=== PATIENT | female | born 1945 | race Two or more races ===

== ENCOUNTER 2017-11-04 10:39 | Emergency (ER) | payer OTHER ==
[~2017-11-04] VITALS: Ht 162.6 cm; Wt 84.8 kg
[~2017-11-04 10:39] MED LIST: ALPRAZOLAM ER1 MG; ATORVASTATIN CA10 MG; COZAAR25 MG; CYTOMEL5 MCG; DICLOFENAC POTA50 MG; PROTONIX20 MG; TENORMIN50 M1; ZYRTEC10 MG PO
[2017-11-04] MEDS ORDERED: ATORVASTATIN CA10 MG (11:16)
[2017-11-04] MEDS ORDERED: MEDROLPACK PO (21:08)
[2017-11-04] MEDS ORDERED: TESSALON PERLE100 MG PO (21:08)
[2017-11-04] MEDS ORDERED: SYMBICORT 16010.2 GM IH (21:08)
[2017-11-04] MEDS ORDERED: VENTOLIN HFA18 GM IH (21:08)
[2017-11-04] MEDS ORDERED: MUCINEX D ER 11 EACH PO (21:08)
[2017-11-04] MEDS ORDERED: ZITHROMAX500 MG PO (21:08)
== END 2017-11-04 21:14 | disposition home or self-care (01) ==
LOC: ER 10:39
DX: J44.9 Chronic obstructive pulmonary disease, unspecified (principal); B34.9 Viral infection, unspecified; J11.1 Influenza due to unidentified influenza virus with other respiratory manifestations

== ENCOUNTER → 2017-11-28 10:24 | Outpatient (CLI) | payer OTHER ==
[~2017-11-28 10:24] MED LIST changes: +MEDROLPACK PO; +MUCINEX D ER 11 EACH PO; +SYMBICORT 16010.2 GM IH; +TESSALON PERLE100 MG PO; +VENTOLIN HFA18 GM IH; +ZITHROMAX500 MG PO
== END | disposition home or self-care (01) ==
LOC: LAB 10:24
DX: E11.65 Type 2 diabetes mellitus with hyperglycemia (principal); E03.8 Other specified hypothyroidism; N39.0 Urinary tract infection, site not specified; Z12.11 Encounter for screening for malignant neoplasm of colon; E78.2 Mixed hyperlipidemia; D64.89 Other specified anemias; D68.8 Other specified coagulation defects

== ENCOUNTER 2017-12-14 13:09 | Outpatient (CLI) | payer OTHER | END 2017-12-14 13:11 | disposition home or self-care (01) | LOC: SONOGRAMA 13:09 | DX: M25.561 Pain in right knee (principal) ==

== ENCOUNTER 2017-12-14 13:14 | Outpatient (CLI) | payer OTHER | END 2017-12-14 13:16 | disposition home or self-care (01) | LOC: RAD 13:14 | DX: J45.41 Moderate persistent asthma with (acute) exacerbation (principal) ==

== ENCOUNTER 2017-12-19 09:47 | Outpatient (CLI) | payer OTHER | END 2017-12-19 09:52 | disposition home or self-care (01) | LOC: RAD 09:47 | DX: M17.11 Unilateral primary osteoarthritis, right knee (principal) ==

== ENCOUNTER 2018-02-13 10:37 | Outpatient (CLI) | payer OTHER | END 2018-02-13 10:52 | disposition home or self-care (01) | LOC: TOM 10:37 | DX: K08.89 Other specified disorders of teeth and supporting structures (principal) ==

== ENCOUNTER 2018-03-04 09:55 | Outpatient (CLI) | payer OTHER | END 2018-03-04 10:05 | disposition home or self-care (01) | LOC: MAMO-SONO 09:55 | DX: Z12.31 Encounter for screening mammogram for malignant neoplasm of breast (principal); Z87.898 Personal history of other specified conditions; Z12.39 Encounter for other screening for malignant neoplasm of breast ==

== ENCOUNTER 2018-05-27 10:10 | Outpatient (CLI) | payer OTHER | END 2018-05-27 10:11 | disposition home or self-care (01) | LOC: LAB 10:10 | DX: E03.8 Other specified hypothyroidism (principal); E78.2 Mixed hyperlipidemia; E11.65 Type 2 diabetes mellitus with hyperglycemia; D68.8 Other specified coagulation defects ==

== ENCOUNTER 2018-05-29 09:25 | Outpatient (CLI) | payer OTHER | END 2018-05-29 09:37 | disposition home or self-care (01) | LOC: LAB 09:25 | DX: R94.5 Abnormal results of liver function studies (principal) ==

== ENCOUNTER 2018-09-02 10:09 | Outpatient (CLI) | payer OTHER | END 2018-09-02 10:24 | disposition home or self-care (01) | LOC: LAB 10:09 | DX: E03.8 Other specified hypothyroidism (principal); D68.8 Other specified coagulation defects; D64.89 Other specified anemias; Z12.11 Encounter for screening for malignant neoplasm of colon; E11.65 Type 2 diabetes mellitus with hyperglycemia ==

== ENCOUNTER 2018-11-27 11:01 | Outpatient (CLI) | payer OTHER | END 2018-11-27 11:34 | disposition home or self-care (01) | LOC: LAB 11:01 | DX: E11.65 Type 2 diabetes mellitus with hyperglycemia (principal); Z12.4 Encounter for screening for malignant neoplasm of cervix; D64.89 Other specified anemias; E03.8 Other specified hypothyroidism; N39.0 Urinary tract infection, site not specified; I11.9 Hypertensive heart disease without heart failure; E11.9 Type 2 diabetes mellitus without complications; E78.00 Pure hypercholesterolemia, unspecified; D55.3 Anemia due to disorders of nucleotide metabolism ==

== ENCOUNTER 2018-12-05 12:27 | Outpatient (CLI) | payer OTHER | END 2018-12-05 12:33 | disposition home or self-care (01) | LOC: LAB 12:27 | DX: B15.9 Hepatitis A without hepatic coma (principal) ==

== ENCOUNTER 2018-12-11 11:37 | Outpatient (CLI) | payer OTHER | END 2018-12-11 11:40 | disposition home or self-care (01) | LOC: RAD 11:37 | DX: J45.998 Other asthma (principal) ==

== ENCOUNTER 2019-03-25 09:46 | Outpatient (CLI) | payer OTHER | END 2019-03-25 09:56 | disposition home or self-care (01) | LOC: LAB 09:46 | DX: E03.8 Other specified hypothyroidism (principal); E78.2 Mixed hyperlipidemia; D64.89 Other specified anemias; D68.8 Other specified coagulation defects; E11.65 Type 2 diabetes mellitus with hyperglycemia ==

== ENCOUNTER 2019-04-25 09:43 | Outpatient (CLI) | payer OTHER | END 2019-04-25 09:51 | disposition home or self-care (01) | LOC: SONOGRAMA 09:43 | DX: N17.8 Other acute kidney failure (principal) ==

== ENCOUNTER 2019-06-30 09:28 | Outpatient (CLI) | payer OTHER | END 2019-06-30 09:35 | disposition home or self-care (01) | LOC: LAB 09:28 | DX: E11.21 Type 2 diabetes mellitus with diabetic nephropathy (principal) ==

== ENCOUNTER 2019-09-08 09:36 | Outpatient (CLI) | payer OTHER | END 2019-09-08 15:29 | disposition home or self-care (01) | LOC: LAB 09:36 | DX: E11.65 Type 2 diabetes mellitus with hyperglycemia (principal); N39.0 Urinary tract infection, site not specified; D64.89 Other specified anemias; E03.8 Other specified hypothyroidism; I11.9 Hypertensive heart disease without heart failure ==

== ENCOUNTER 2019-12-23 10:00 | Outpatient (CLI) | payer OTHER | END 2019-12-23 10:23 | disposition home or self-care (01) | LOC: LAB 10:00 | DX: E03.8 Other specified hypothyroidism (principal); E78.2 Mixed hyperlipidemia; D64.89 Other specified anemias; I69.998 Other sequelae following unspecified cerebrovascular disease; E78.00 Pure hypercholesterolemia, unspecified ==

== ENCOUNTER → 2020-03-23 08:07 | Outpatient (CLI) | payer OTHER | END | disposition home or self-care (01) | LOC: LAB 08:07 | DX: I11.9 Hypertensive heart disease without heart failure (principal); E11.9 Type 2 diabetes mellitus without complications; E78.00 Pure hypercholesterolemia, unspecified; K75.81 Nonalcoholic steatohepatitis (NASH); E03.8 Other specified hypothyroidism; E78.2 Mixed hyperlipidemia; D64.89 Other specified anemias ==

== ENCOUNTER 2020-08-04 10:03 | Outpatient (CLI) | payer OTHER | END 2020-08-04 15:00 | disposition home or self-care (01) | LOC: LAB 10:03 | PROVIDERS: ATTEND Internal Medicine Cardiovascular Disease | DX: E03.8 Other specified hypothyroidism (principal); E78.2 Mixed hyperlipidemia; E78.00 Pure hypercholesterolemia, unspecified; I10 Essential (primary) hypertension; Z73.0 Burn-out ==

== ENCOUNTER 2020-12-13 10:22 | Outpatient (CLI) | payer OTHER | END 2020-12-13 10:32 | disposition home or self-care (01) | LOC: LAB 10:22 | PROVIDERS: ATTEND Internal Medicine Endocrinology, Diabetes & Metabolism | DX: E03.8 Other specified hypothyroidism (principal); E78.2 Mixed hyperlipidemia; I10 Essential (primary) hypertension; E66.09 Other obesity due to excess calories; R94.5 Abnormal results of liver function studies ==

== ENCOUNTER 2021-01-03 10:15 | Outpatient (CLI) | payer OTHER | END 2021-01-03 10:20 | disposition home or self-care (01) | LOC: RAD 10:15 | PROVIDERS: ATTEND Internal Medicine Endocrinology, Diabetes & Metabolism | DX: Z12.31 Encounter for screening mammogram for malignant neoplasm of breast (principal); N64.59 Other signs and symptoms in breast; E04.2 Nontoxic multinodular goiter; E03.8 Other specified hypothyroidism ==

== ENCOUNTER 2021-01-10 11:09 | Outpatient (CLI) | payer OTHER | END 2021-01-10 11:13 | disposition home or self-care (01) | LOC: NUCLEAR 11:09 | PROVIDERS: ATTEND Internal Medicine Endocrinology, Diabetes & Metabolism | DX: M85.89 Other specified disorders of bone density and structure, multiple sites (principal); Z13.820 Encounter for screening for osteoporosis ==

== ENCOUNTER → 2021-02-28 10:54 | Outpatient (CLI) | payer OTHER | END | disposition home or self-care (01) | LOC: LAB 10:54 | PROVIDERS: ATTEND Internal Medicine Endocrinology, Diabetes & Metabolism | DX: M85.89 Other specified disorders of bone density and structure, multiple sites (principal); E83.51 Hypocalcemia ==

== ENCOUNTER 2021-06-25 09:26 | Outpatient (CLI) | payer OTHER | END 2021-06-25 09:32 | disposition home or self-care (01) | LOC: LAB 09:26 | PROVIDERS: ATTEND Internal Medicine Endocrinology, Diabetes & Metabolism | DX: D64.89 Other specified anemias (principal); E03.8 Other specified hypothyroidism; E78.2 Mixed hyperlipidemia; E55.9 Vitamin D deficiency, unspecified; R94.5 Abnormal results of liver function studies; E11.65 Type 2 diabetes mellitus with hyperglycemia ==

== ENCOUNTER → 2021-10-04 | Outpatient (CLI) | payer OTHER | END | disposition home or self-care (01) | LOC: TOM 11:45 | PROVIDERS: ATTEND Internal Medicine Cardiovascular Disease | DX: J45.998 Other asthma (principal) ==

== ENCOUNTER 2021-10-14 09:49 | Outpatient (CLI) | payer OTHER | END 2021-10-14 09:50 | disposition home or self-care (01) | LOC: LAB 09:49 | PROVIDERS: ATTEND Internal Medicine Cardiovascular Disease | DX: E78.2 Mixed hyperlipidemia (principal); I16.9 Hypertensive crisis, unspecified; E03.8 Other specified hypothyroidism; D64.89 Other specified anemias; E06.3 Autoimmune thyroiditis; M81.0 Age-related osteoporosis without current pathological fracture; M85.89 Other specified disorders of bone density and structure, multiple sites; E55.9 Vitamin D deficiency, unspecified; R73.01 Impaired fasting glucose; E83.51 Hypocalcemia; E83.52 Hypercalcemia ==

== ENCOUNTER 2021-12-01 11:12 | Outpatient (CLI) | payer OTHER | END 2021-12-01 11:15 | disposition home or self-care (01) | LOC: SONOGRAMA 11:12 | PROVIDERS: ATTEND Internal Medicine Endocrinology, Diabetes & Metabolism | DX: K80.80 Other cholelithiasis without obstruction (principal); N28.89 Other specified disorders of kidney and ureter; I10 Essential (primary) hypertension ==

== ENCOUNTER 2021-12-02 11:26 | Outpatient (CLI) | payer OTHER | END 2021-12-02 11:33 | disposition home or self-care (01) | LOC: LAB 11:26 | PROVIDERS: ATTEND Internal Medicine Endocrinology, Diabetes & Metabolism | DX: E03.8 Other specified hypothyroidism (principal); E55.9 Vitamin D deficiency, unspecified; I10 Essential (primary) hypertension; E88.81 Metabolic syndrome and other insulin resistance; N28.89 Other specified disorders of kidney and ureter ==

== ENCOUNTER 2022-03-27 10:32 | Outpatient (CLI) | payer OTHER | END 2022-03-27 10:39 | disposition home or self-care (01) | LOC: LAB 10:32 | PROVIDERS: ATTEND Internal Medicine Endocrinology, Diabetes & Metabolism | DX: E78.2 Mixed hyperlipidemia (principal); V16.0XXA Pedal cycle driver injured in collision with other nonmotor vehicle in nontraffic accident, initial encounter; V17.4XXA Pedal cycle driver injured in collision with fixed or stationary object in traffic accident, initial encounter; J45.909 Unspecified asthma, uncomplicated; I12.9 Hypertensive chronic kidney disease with stage 1 through stage 4 chronic kidney disease, or unspecified chronic kidney disease; D63.8 Anemia in other chronic diseases classified elsewhere; I11.9 Hypertensive heart disease without heart failure; E78.00 Pure hypercholesterolemia, unspecified; E55.9 Vitamin D deficiency, unspecified; E03.9 Hypothyroidism, unspecified; E11.21 Type 2 diabetes mellitus with diabetic nephropathy; D64.9 Anemia, unspecified; E88.81 Metabolic syndrome and other insulin resistance; E03.8 Other specified hypothyroidism ==

== ENCOUNTER 2022-07-20 10:38 | Outpatient (CLI) | payer OTHER | END 2022-07-20 10:39 | disposition home or self-care (01) | LOC: LAB 10:38 | PROVIDERS: ATTEND Specialist | DX: N25.81 Secondary hyperparathyroidism of renal origin (principal); E11.69 Type 2 diabetes mellitus with other specified complication; E11.21 Type 2 diabetes mellitus with diabetic nephropathy; D64.89 Other specified anemias; R19.5 Other fecal abnormalities; N39.9 Disorder of urinary system, unspecified; E03.8 Other specified hypothyroidism; E78.2 Mixed hyperlipidemia; M81.0 Age-related osteoporosis without current pathological fracture; M85.89 Other specified disorders of bone density and structure, multiple sites; E11.65 Type 2 diabetes mellitus with hyperglycemia; D64.9 Anemia, unspecified; R94.5 Abnormal results of liver function studies; E83.52 Hypercalcemia ==

== ENCOUNTER 2022-11-20 10:23 | Outpatient (CLI) | payer OTHER | END 2022-11-20 13:22 | disposition home or self-care (01) | LOC: LAB 10:23 | PROVIDERS: ATTEND Specialist | DX: E03.9 Hypothyroidism, unspecified (principal); E78.2 Mixed hyperlipidemia; E11.65 Type 2 diabetes mellitus with hyperglycemia; Z12.11 Encounter for screening for malignant neoplasm of colon; D64.9 Anemia, unspecified ==

== ENCOUNTER 2022-12-20 09:58 | Outpatient (CLI) | payer OTHER | END 2022-12-20 10:04 | disposition home or self-care (01) | LOC: TOM 09:58 | PROVIDERS: ATTEND Internal Medicine Hepatology | DX: R10.11 Right upper quadrant pain (principal); R10.31 Right lower quadrant pain ==

== ENCOUNTER 2022-12-29 10:35 | Outpatient (CLI) | payer OTHER | END 2022-12-29 11:58 | disposition home or self-care (01) | LOC: LAB 10:35 | PROVIDERS: ATTEND Internal Medicine Cardiovascular Disease | DX: I11.9 Hypertensive heart disease without heart failure (principal); E78.00 Pure hypercholesterolemia, unspecified; E11.9 Type 2 diabetes mellitus without complications; E03.8 Other specified hypothyroidism; M91.0 Juvenile osteochondrosis of pelvis; M85.89 Other specified disorders of bone density and structure, multiple sites; R94.5 Abnormal results of liver function studies; E83.51 Hypocalcemia; E83.52 Hypercalcemia ==

== ENCOUNTER → 2023-02-19 11:14 | Outpatient (CLI) | payer OTHER | END | disposition home or self-care (01) | LOC: LAB 11:14 | PROVIDERS: ATTEND Specialist | DX: N19 Unspecified kidney failure (principal); E11.21 Type 2 diabetes mellitus with diabetic nephropathy; N39.9 Disorder of urinary system, unspecified; E03.8 Other specified hypothyroidism; D64.89 Other specified anemias ==

== ENCOUNTER 2023-05-12 10:04 | Outpatient (CLI) | payer OTHER | END 2023-05-12 10:07 | disposition home or self-care (01) | LOC: LAB 10:04 | PROVIDERS: ATTEND Specialist | DX: N25.81 Secondary hyperparathyroidism of renal origin (principal); E11.69 Type 2 diabetes mellitus with other specified complication; D64.89 Other specified anemias; N39.9 Disorder of urinary system, unspecified; Z13.220 Encounter for screening for lipoid disorders; E03.8 Other specified hypothyroidism; E78.2 Mixed hyperlipidemia; E83.52 Hypercalcemia; M81.0 Age-related osteoporosis without current pathological fracture ==

== ENCOUNTER 2023-09-13 10:28 | Outpatient (CLI) | payer OTHER ==
[2023-09-13 11:06] LABS: URINE APPEARANCE Clear; URINE BILIRRUBIN Negative (NEGATIVE); URINE BLOOD Negative; URINE COLOR Yellow; URINE GLUCOSE Negative (NEGATIVE); URINE LEUKOCYTE Negative; URINE NITRATE Negative; URINE PROTEIN Negative (NEGATIVE); URINE UROBILINOGEN 0.2 E.U./dl
[2023-09-13 11:10] LABS: URINE BACTERIA 20.1 uL (0.0-1933); URINE EPITHELIAL CELLS 11.7 uL (0.0-38.8); URINE WBC 3.6 uL (0.0-23.2)
[2023-09-13 11:56] LABS: HEMATOCRIT 33.6 % (36.0-45.00); HEMOGLOBIN 11.3 g/dL (12.0-15.00); MEAN CELL VOLUME 93.5 fL (80.00-100.00); MEAN CORPUSCULAR HEMOGLOBIN 31.3 pg (27.00-32.0); MEAN CORPUSCULAR HGB CONC 33.5 g/dl (32.0-36.0); PLATELET COUNT 310 K/uL (150-450); RED CELL DISTRIBUTION WIDTH 14.2 % (11.5-14.5)
[2023-09-13 12:52] LABS: ALBUMIN 3.5 gm/dL (3.4-5.0); BILIRUBIN TOTAL 0.58 mg/dL (0.3-1.2); BILIRUBIN,CONJUGATED 0.2 mg/dL (0.0-0.2); BILIRUBIN,UNCONJUGATED 0.38 mg/dL (0.0-0.6); CALCIUM 9.6 mg/dL (8.5-10.1); CHOL HDL RATIO 2.6 (0-5.0); CREATININE SERUM 1.38 mg/dL (0.55-1.02); FREE TRIODOTIRONINE 1.59 pg/ml (2.18-3.98); GFR 37.17; GLOBULINA 3.8 G/DL (2.4-3.5); MAGNESIUM 1.9 mg/dL (1.8-2.4); PHOSPHOROUS 2.7 mg/dL (2.5-4.9); POTASSIUM 3.93 mEq/L (3.5-5.1); T4 FREE 1.32 NG/ML (0.76-1.46); TOTAL PROTEIN 7.3 gm/dL (6.4-8.2); TSH 1.95 uIU/mL (0.358-3.74)
== END 2023-09-13 10:32 | disposition home or self-care (01) ==
LOC: LAB 10:28
PROVIDERS: ATTEND Specialist
DX: E03.9 Hypothyroidism, unspecified (principal); N39.9 Disorder of urinary system, unspecified; E78.2 Mixed hyperlipidemia; D64.9 Anemia, unspecified; K75.81 Nonalcoholic steatohepatitis (NASH); R73.01 Impaired fasting glucose; E03.8 Other specified hypothyroidism; M81.0 Age-related osteoporosis without current pathological fracture; M85.89 Other specified disorders of bone density and structure, multiple sites; E83.52 Hypercalcemia; Z88.6 Allergy status to analgesic agent

== ENCOUNTER → 2023-11-16 10:21 | Outpatient (CLI) | payer OTHER ==
[2023-11-16 12:53] LABS: ALBUMIN 3.6 gm/dL (3.4-5.0); BILIRUBIN TOTAL 0.47 mg/dL (0.3-1.2); CALCIUM 9.8 mg/dL (8.5-10.1); CHOL HDL RATIO 3.3 (0-5.0); CREATININE SERUM 1.22 mg/dL (0.55-1.02); GFR 42.85; GLOBULINA 3.6 G/DL (2.4-3.5); POTASSIUM 4.54 mEq/L (3.5-5.1); TOTAL PROTEIN 7.2 gm/dL (6.4-8.2)
== END | disposition home or self-care (01) ==
LOC: LAB 10:21
PROVIDERS: ATTEND Internal Medicine Cardiovascular Disease
DX: I11.9 Hypertensive heart disease without heart failure (principal); E78.00 Pure hypercholesterolemia, unspecified; E55.9 Vitamin D deficiency, unspecified; Z88.6 Allergy status to analgesic agent

== ENCOUNTER 2023-12-29 10:15 | Outpatient (CLI) | payer OTHER ==
[2023-12-29 11:12] LABS: PH,URINE 5.5 (5.0-8.0); URINE APPEARANCE Clear; URINE BILIRRUBIN Negative (NEGATIVE); URINE BLOOD Negative; URINE COLOR Yellow; URINE GLUCOSE Negative (NEGATIVE); URINE LEUKOCYTE Negative; URINE NITRATE Negative; URINE PROTEIN Negative (NEGATIVE); URINE UROBILINOGEN 0.2 E.U./dl
[2023-12-29 11:16] LABS: URINE BACTERIA 75.5 uL (0.0-1933); URINE EPITHELIAL CELLS 6.1 uL (0.0-38.8); URINE WBC 8.3 uL (0.0-23.2)
[2023-12-29 11:18] LABS: HEMATOCRIT 35.8 % (36.0-45.00); HEMOGLOBIN 11.9 g/dL (12.0-15.00); MEAN CELL VOLUME 91.1 fL (80.00-100.00); MEAN CORPUSCULAR HEMOGLOBIN 30.4 pg (27.00-32.0); MEAN CORPUSCULAR HGB CONC 33.3 g/dl (32.0-36.0); PLATELET COUNT 325 K/uL (150-450); RED BLOOD COUNT 3.93 M/uL (4.00-6.00); RED CELL DISTRIBUTION WIDTH 14.4 % (11.5-14.5)
[2023-12-29 11:59] LABS: URINE RBC 1.5 uL (0.0-20.8)
[2023-12-29 12:25] LABS: ALBUMIN 3.6 gm/dL (3.4-5.0); BILIRUBIN TOTAL 0.58 mg/dL (0.3-1.2); CALCIUM 10.1 mg/dL (8.5-10.1); CHOL HDL RATIO 2.7 (0-5.0); CREATININE SERUM 1.18 mg/dL (0.55-1.02); FREE TRIODOTIRONINE 2.03 pg/ml (2.18-3.98); GFR 44.53; GLOBULINA 3.5 G/DL (2.4-3.5); POTASSIUM 3.86 mEq/L (3.5-5.1); T4 FREE 1.31 NG/ML (0.76-1.46); TOTAL PROTEIN 7.1 gm/dL (6.4-8.2); TSH 0.934 uIU/mL (0.358-3.74)
[2023-12-29 12:32] LABS: C-REACTIVE PROTEIN 1.65 MG/DL (0.00-0.29)
== END 2023-12-29 10:18 | disposition home or self-care (01) ==
LOC: LAB 10:15
PROVIDERS: ATTEND Specialist
DX: E03.8 Other specified hypothyroidism (principal); M00.80 Arthritis due to other bacteria, unspecified joint; E11.69 Type 2 diabetes mellitus with other specified complication; N25.81 Secondary hyperparathyroidism of renal origin; Z13.220 Encounter for screening for lipoid disorders; N39.9 Disorder of urinary system, unspecified; E11.21 Type 2 diabetes mellitus with diabetic nephropathy

== ENCOUNTER 2024-05-14 10:46 | Outpatient (CLI) | payer OTHER | END 2024-05-14 10:53 | disposition home or self-care (01) | LOC: MRI 10:46 | PROVIDERS: ATTEND Specialist | DX: M17.9 Osteoarthritis of knee, unspecified (principal) | CPT/HCPCS: 73721 ==

== ENCOUNTER 2024-08-01 09:43 | Outpatient (CLI) | payer OTHER ==
[2024-08-01 11:06] LABS: ALBUMIN 3.5 gm/dL (3.4-5.0); BILIRUBIN TOTAL 0.48 mg/dL (0.3-1.2); CALCIUM 9.5 mg/dL (8.5-10.1); CREATININE SERUM 1.42 mg/dL (0.55-1.02); GFR 35.87; GLOBULINA 3.7 G/DL (2.4-3.5); MAGNESIUM 2.2 mg/dL (1.8-2.4); POTASSIUM 4.98 mEq/L (3.5-5.1); T4 FREE 1.18 NG/ML (0.76-1.46); TOTAL PROTEIN 7.2 gm/dL (6.4-8.2); TSH 1.96 uIU/mL (0.358-3.74)
[2024-08-01 12:14] LABS: T3 TOTAL 0.946 ng/ml (0.846-2.02); VITAMIN D3 25 HYDROXY 72.73 ng/ml (30-120)
== END 2024-08-01 09:50 | disposition home or self-care (01) ==
LOC: LAB 09:43
PROVIDERS: ATTEND Internal Medicine Endocrinology, Diabetes & Metabolism
DX: E06.3 Autoimmune thyroiditis (principal); E03.8 Other specified hypothyroidism; I11.9 Hypertensive heart disease without heart failure; E55.9 Vitamin D deficiency, unspecified; E11.9 Type 2 diabetes mellitus without complications; E78.00 Pure hypercholesterolemia, unspecified

== ENCOUNTER 2024-08-19 11:50 | Outpatient (CLI) | payer OTHER ==
[2024-08-19 12:26] LABS: HEMATOCRIT 37.3 % (36.0-45.00); HEMOGLOBIN 12.2 g/dL (12.0-15.00); MEAN CELL VOLUME 93.5 fL (80.00-100.00); MEAN CORPUSCULAR HEMOGLOBIN 30.5 pg (27.00-32.0); MEAN CORPUSCULAR HGB CONC 32.6 g/dl (32.0-36.0); PLATELET COUNT 296 K/uL (150-450); RED BLOOD COUNT 3.99 M/uL (4.00-6.00); RED CELL DISTRIBUTION WIDTH 13.2 % (11.5-14.5)
[2024-08-19 13:13] LABS: CREATININE SERUM 1.27 mg/dL (0.55-1.02)
== END 2024-08-19 13:35 | disposition home or self-care (01) ==
LOC: LAB 11:50
PROVIDERS: ATTEND Internal Medicine Endocrinology, Diabetes & Metabolism
DX: N18.32 Chronic kidney disease, stage 3b (principal); D50.9 Iron deficiency anemia, unspecified; R06.02 Shortness of breath; J45.30 Mild persistent asthma, uncomplicated

== ENCOUNTER 2024-08-19 12:39 | Outpatient (CLI) | payer OTHER | END 2024-08-19 12:41 | disposition home or self-care (01) | LOC: NUCLEAR 12:39 | PROVIDERS: ATTEND Internal Medicine Endocrinology, Diabetes & Metabolism | DX: M85.89 Other specified disorders of bone density and structure, multiple sites (principal); Z13.820 Encounter for screening for osteoporosis; M81.0 Age-related osteoporosis without current pathological fracture ==

== ENCOUNTER 2024-12-10 10:47 | Outpatient (CLI) | payer OTHER ==
[2024-12-10 11:44] LABS: HEMATOCRIT 36.6 % (36.0-45.00); HEMOGLOBIN 12.1 g/dL (12.0-15.00); MEAN CELL VOLUME 93.2 fL (80.00-100.00); MEAN CORPUSCULAR HGB CONC 33.2 g/dl (32.0-36.0); PLATELET COUNT 304 K/uL (150-450); RED BLOOD COUNT 3.92 M/uL (4.00-6.00); RED CELL DISTRIBUTION WIDTH 13.4 % (11.5-14.5)
[2024-12-10 11:52] LABS: URINE BACTERIA 6.1 uL (0.0-1933); URINE EPITHELIAL CELLS 6.4 uL (0.0-38.8); URINE WBC 5.3 uL (0.0-23.2)
[2024-12-10 11:53] LABS: PH,URINE 5.5 (5.0-8.0); URINE APPEARANCE Clear; URINE BILIRRUBIN Negative (NEGATIVE); URINE BLOOD Negative; URINE COLOR Yellow; URINE GLUCOSE Negative (NEGATIVE); URINE KETONE Negative (NEGATIVE); URINE LEUKOCYTE Negative; URINE NITRATE Negative; URINE PROTEIN Negative (NEGATIVE); URINE UROBILINOGEN 0.2 E.U./dl
[2024-12-10 12:55] LABS: ALBUMIN 3.6 gm/dL (3.4-5.0); BILIRUBIN TOTAL 0.5 mg/dL (0.3-1.2); CALCIUM 9.6 mg/dL (8.5-10.1); CHOL HDL RATIO 2.9 (0-5.0); CREATININE SERUM 1.05 mg/dL (0.55-1.02); FREE TRIODOTIRONINE 2.02 pg/ml (2.18-3.98); GFR 50.82; GLOBULINA 3.7 G/DL (2.4-3.5); MAGNESIUM 1.7 mg/dL (1.8-2.4); POTASSIUM 3.81 mEq/L (3.5-5.1); T4 FREE 1.18 NG/ML (0.76-1.46); TOTAL PROTEIN 7.3 gm/dL (6.4-8.2); TSH 3.15 uIU/mL (0.358-3.74)
== END 2024-12-10 10:48 | disposition home or self-care (01) ==
LOC: LAB 10:47
PROVIDERS: ATTEND Specialist
DX: E03.9 Hypothyroidism, unspecified (principal); E11.21 Type 2 diabetes mellitus with diabetic nephropathy; N39.9 Disorder of urinary system, unspecified; E78.2 Mixed hyperlipidemia; E11.65 Type 2 diabetes mellitus with hyperglycemia; D64.9 Anemia, unspecified; N39.0 Urinary tract infection, site not specified; E55.9 Vitamin D deficiency, unspecified; M81.0 Age-related osteoporosis without current pathological fracture

== ENCOUNTER 2025-01-08 11:15 | Outpatient (CLI) | payer OTHER | END 2025-01-08 11:40 | disposition home or self-care (01) | LOC: TOM 11:15 | PROVIDERS: ATTEND Internal Medicine Pulmonary Disease | DX: R06.02 Shortness of breath (principal); J45.30 Mild persistent asthma, uncomplicated ==

== ENCOUNTER 2025-04-30 10:34 | Outpatient (CLI) | payer OTHER ==
[2025-04-30 11:31] LABS: BASO % 0.3 % (0.1-1.2); HEMATOCRIT 35.4 % (34.1-44.9); HEMOGLOBIN 11.3 g/dL (11.2-15.7); LYMPH # 2.38 (1.18-3.74); LYMPH % 24.8 % (19.3-53.1); MEAN CORPUSCULAR HEMOGLOBIN 29.4 pg (25.6-32.2); MONO # 0.92 (0.24-0.82); MONO % 9.6 % (4.7-12.5); NEUT # 6.11 (1.56-6.13); NEUT % 63.7 % (34.0-71.1); PLATELET COUNT 368 K/uL (163-369); RED BLOOD COUNT 3.85 M/uL (3.93-5.22); RED CELL DISTRIBUTION WIDTH 13.1 % (11.6-14.4)
[2025-04-30 11:41] LABS: URINE APPEARANCE Clear; URINE BILIRRUBIN Negative (NEGATIVE); URINE BLOOD Negative; URINE COLOR Yellow; URINE GLUCOSE Negative (NEGATIVE); URINE KETONE Negative (NEGATIVE); URINE LEUKOCYTE Negative; URINE NITRATE Negative; URINE PROTEIN Negative (NEGATIVE); URINE UROBILINOGEN 0.2 E.U./dl
[2025-04-30 11:46] LABS: URINE BACTERIA 13.4 uL (0.0-1933); URINE WBC 4.8 uL (0.0-23.2)
[2025-04-30 12:06] LABS: URINE CAST 0.14 uL (0.0-1.40); URINE RBC 0.1 uL (0.0-20.8)
[2025-04-30 12:33] LABS: ALBUMIN 3.5 gm/dL (3.4-5.0); BILIRUBIN TOTAL 0.43 mg/dL (0.3-1.2); CALCIUM 10.1 mg/dL (8.5-10.1); CREATININE SERUM 1.61 mg/dL (0.55-1.02); FREE TRIODOTIRONINE 1.53 pg/ml (2.18-3.98); GFR 31.03; GLOBULINA 3.9 G/DL (2.4-3.5); POTASSIUM 4.32 mEq/L (3.5-5.1); T4 FREE 1.44 NG/ML (0.76-1.46); TOTAL PROTEIN 7.4 gm/dL (6.4-8.2); TSH 1.59 uIU/mL (0.358-3.74)
== END 2025-04-30 10:39 | disposition home or self-care (01) ==
LOC: LAB 10:34
PROVIDERS: ATTEND Specialist
DX: E03.9 Hypothyroidism, unspecified (principal); E11.21 Type 2 diabetes mellitus with diabetic nephropathy; N39.9 Disorder of urinary system, unspecified; E78.2 Mixed hyperlipidemia; E11.65 Type 2 diabetes mellitus with hyperglycemia; D64.9 Anemia, unspecified; E03.8 Other specified hypothyroidism; M85.89 Other specified disorders of bone density and structure, multiple sites; D64.89 Other specified anemias; R94.5 Abnormal results of liver function studies

== ENCOUNTER 2025-05-01 08:51 | Outpatient (CLI) | payer OTHER | END 2025-05-01 08:59 | disposition home or self-care (01) | LOC: TOM 08:51 | DX: R10.32 Left lower quadrant pain (principal) | CPT/HCPCS: 74177; Q9965 ==

== ENCOUNTER → 2025-08-31 10:43 | Outpatient (CLI) | payer OTHER ==
[2025-08-31 12:04] LABS: BASO % 0.5 % (0.1-1.2); EOS # 0.12 (0.04-0.54); EOS % 1.4 % (0.7-7.0); LYMPH # 2.57 (1.18-3.74); LYMPH % 31.0 % (19.3-53.1); MEAN PLATELET VOLUME 9.70 fl (9.4-12.4); MONO # 0.73 (0.24-0.82); MONO % 8.8 % (4.7-12.5); NEUT # 4.79 (1.56-6.13); NEUT % 57.7 % (34.0-71.1); RED CELL DISTRIBUTION WIDTH 13.2 % (11.6-14.4)
[2025-08-31 12:10] LABS: URINE APPEARANCE Clear; URINE BILIRRUBIN Negative (NEGATIVE); URINE BLOOD Negative; URINE COLOR Yellow; URINE GLUCOSE Negative (NEGATIVE); URINE KETONE Negative (NEGATIVE); URINE LEUKOCYTE Trace; URINE NITRATE Negative; URINE PROTEIN Negative (NEGATIVE); URINE UROBILINOGEN 0.2 E.U./dl
[2025-08-31 12:15] LABS: URINE BACTERIA 120.0 uL (0.0-1933); URINE EPITHELIAL CELLS 15.0 uL (0.0-38.8); URINE WBC 23.8 uL (0.0-23.2)
[2025-08-31 12:17] LABS: URINE CAST 0.00 uL (0.0-1.40); URINE RBC 1.3 uL (0.0-20.8)
[2025-08-31 12:18] LABS: CREATININE URINE RANDOM 71.7 MG/DL (30-125)
[2025-08-31 12:27] LABS: INR 1.09
[2025-08-31 12:58] LABS: ALT/SGPT 29.0 U/L (12-78); AST/SGOT 27.0 U/L (15-37); BILIRUBIN TOTAL 0.52 mg/dL (0.3-1.2); BUN CREA RATIO 18.0 (7.0-25.0); CHOL HDL RATIO 2.7 (0-5.0); CREATININE SERUM 1.19 mg/dL (0.55-1.02); FREE TRIODOTIRONINE 1.66 pg/ml (2.18-3.98); GFR 43.87; GLOBULINA 3.2 G/DL (2.4-3.5); GLUCOSE FASTING 113.0 mg/dL (65-100); HDL 64.0 mg/dl (40-60); LDL 72.0 mg/dl (0-130); OSMOLALITY SERUM 289.0 MOSM/KG (275-295); T4 FREE 1.37 NG/ML (0.76-1.46); TSH 1.67 uIU/mL (0.358-3.74); VLDL 34.0 (0-39)
== END | disposition home or self-care (01) ==
LOC: LAB 10:43
PROVIDERS: ATTEND Specialist
DX: E03.9 Hypothyroidism, unspecified (principal); E11.21 Type 2 diabetes mellitus with diabetic nephropathy; N39.9 Disorder of urinary system, unspecified; E78.2 Mixed hyperlipidemia; E11.65 Type 2 diabetes mellitus with hyperglycemia; D64.9 Anemia, unspecified; D68.8 Other specified coagulation defects